=== PATIENT | female | born 1970 | race Caucasian/White ===

== ENCOUNTER 2017-08-29 05:23 | Emergency (ER) | payer OTHER ==
[~2017-08-29] VITALS: Ht 172.7 cm; Wt 54.4 kg
[~2017-08-29 05:23] MED LIST: ALBUTEROL INHAL17 GM INH; ASMANEX0.135 G1; BIAXIN 500 MG500 M1 PO; CHERATUSSIN DA480 ML PO; ETODOLAC 400 M400 M1; FLEXERIL; MIRAPEX PO; NOHOMEMEDICATIONS; VICODIN 5-5001 EACH PO
[2017-08-29] MEDS ORDERED: FLEXERIL PO (05:35)
[2017-08-29 06:05] LABS: URINE BILIRUBIN NEGATIVE (Negative); URINE BLOOD NEGATIVE (Negative); URINE CLARITY CLEAR; URINE COLOR YELLOW; URINE GLUCOSE-RANDOM NEGATIVE (Negative); URINE KETONES NEGATIVE (Negative); URINE LEUKOCYTES-REFLEX NEGATIVE (Negative); URINE NITRITE-REFLEX NEGATIVE (Negative); URINE PROTEIN NEGATIVE (Negative); URINE UROBILINOGEN 0.2 E.U./dl (0.2-1.0)
[2017-08-29 06:12] LABS: AMP/METHAMP Negative (Negative); BARBITURATES Negative (Negative); BENZODIAZEPINES Negative (Negative); COCAINE Negative (Negative); METHADONE Negative (Negative); OPIATES Negative (Negative); PCP Negative (Negative); THC Negative (Negative)
[2017-08-29 06:41] VITALS: BP 126/80
== END 2017-08-29 06:42 | disposition home or self-care (01) ==
LOC: M.ERS 05:23
PROVIDERS: Personal Emergency Response Attendant
DX: K59.00 Constipation, unspecified (principal); R20.2 Paresthesia of skin; Z90.49 Acquired absence of other specified parts of digestive tract; Z88.8 Allergy status to other drugs, medicaments and biological substances

== ENCOUNTER 2018-08-27 13:22 | Emergency (ER) | payer OTHER ==
[~2018-08-27] VITALS: Ht 172.7 cm; Wt 49.0 kg
[~2018-08-27 13:22] MED LIST changes: +FLEXERIL PO
[2018-08-27] MEDS ORDERED: NAPROSYN500 MG PO (13:40)
[2018-08-27] MEDS ORDERED: OMEPRAZOLE20 MG PO (13:40)
[2018-08-27] MEDS ORDERED: LINZESS290 MCG PO (13:41)
[2018-08-27] MEDS ORDERED: FLEXERIL PO (13:41)
[2018-08-27] MEDS ORDERED: NORCO 5-325 TA1 EACH PO (13:42)
[2018-08-27 13:55] LABS: ABSOLUTE EOSINOPHILS 0.1 thou/uL (0.0-0.7); ABSOLUTE MONOCYTES 0.4 thou/uL (0.0-1.2); ABSOLUTE NEUTROPHILS 2.2 thou/uL (1.6-8.1); BASOPHILS 0.9 %; HEMATOCRIT 35.5 % (37.0-47.0); HEMOGLOBIN 12.4 gm/dL (12.0-15.0); LYMPHOCYTES 42.4 %; MCH 30.8 pg (26.0-34.0); MCHC 34.9 g/dL (28.0-37.0); MCV 88.3 fL (80.0-100.0); MPV 7.9 fl. (7.2-11.1); NUCLEATED RBCS 0 /100WBC; PLATELET COUNT* 204 thou/uL (150-400); POLYS 46.7 %; RBC 4.02 mil/uL (4.20-5.00); RDW-CV 13.3 % (10.5-14.5); WBC 4.8 thou/uL (4.0-11.0)
[2018-08-27 14:04] LABS: INR 1.1; PROTIME 10.9 Seconds (9.20-11.50)
[2018-08-27 14:14] LABS: ANION GAP 7 mmol/L (7-16); BUN 13 mg/dL (7-18); CALCIUM 8.6 mg/dL (8.5-10.1); CHLORIDE 104 mmol/L (98-107); CO2 30 mmol/L (21-32); CREATININE 0.9 mg/dL (0.6-1.3); GLUCOSE 94 mg/dL (70-99); POTASSIUM 3.1 mmol/L (3.5-5.1); SODIUM 141 mmol/L (136-145)
[2018-08-27 14:25] LABS: ALKALINE PHOSPHATASE 63 U/L (46-116); SGOT 30 U/L (15-37); SGPT 29 U/L (30-65); TOTAL BILIRUBIN 0.4 mg/dL (<0.1-1.0); TOTAL PROTEIN 6.7 g/dL (6.4-8.2); TROPONIN-I LEVEL <0.06 ng/mL (<0.06)
[2018-08-27 15:21] VITALS: BP 91/58
--- NOTE | 2018-08-28 13:04 | EKG ---
[place] [address] ELECTROCARDIOGRAM REPORT Name: JOSE TYSON [id number] Admission: 08/27/18 Attend Phys: Discharge: 08/27/18 Date of : 74 Report #: [id number] THIS REPORT FOR: //name// [facility] ED Test Date: 2018-08-27 Test Time: 13:47:26 Pat Name: JOSE TYSON Department: Room: Gender: F Asl Interpreter: LAVINIA : 1970 Requested By: Bam Felder Order Number: [id number] MD: Mike Reed Measurements Intervals [place] Rate: 57 P: 65 AK: 190 QRS: 99 QRSD: 100 T: 62 QT: 431 QTc: 420 Interpretive Statements Sinus rhythm Atrial premature complex Borderline right axis deviation Borderline low voltage, extremity leads Baseline wander in lead(s) V2 No previous ECG available for comparison Electronically Signed On 08-28-2018 13:04:47 [employer] by Mike Reed [email or web address] <ELECTRONICALLY SIGNED> By: Mike Reed MD, [facility] 08/28/18 1304 46 Mike Reed MD, FACC /EPI
== END 2018-08-27 15:21 | disposition home or self-care (01) ==
LOC: M.ERS 13:22
PROVIDERS: Family Medicine
DX: R20.2 Paresthesia of skin (principal); M79.7 Fibromyalgia; Z88.8 Allergy status to other drugs, medicaments and biological substances; Z90.49 Acquired absence of other specified parts of digestive tract

== ENCOUNTER 2019-05-11 07:41 | Emergency (ER) | payer OTHER ==
[~2019-05-11] VITALS: Ht 172.7 cm; Wt 46.3 kg
[~2019-05-11 07:41] MED LIST changes: +LINZESS290 MCG PO; +NAPROSYN500 MG PO; +NORCO 5-325 TA1 EACH PO; +OMEPRAZOLE20 MG PO
[2019-05-11] MEDS ORDERED: KEFLEX500 M2 PO (08:25)
[2019-05-11 09:04] LABS: HEMATOCRIT 38.9 % (37.0-47.0); HEMOGLOBIN 13.3 gm/dL (12.0-15.0); MCH 29.9 pg (26.0-34.0); MCHC 34.2 g/dL (28.0-37.0); MCV 87.4 fL (80.0-100.0); MPV 7.6 fl. (7.2-11.1); RBC 4.45 mil/uL (4.20-5.00); RDW-CV 12.9 % (10.5-14.5); WBC 8.5 thou/uL (4.0-11.0)
[2019-05-11 09:09] LABS: CALCIUM 9.3 mg/dL (8.5-10.1); CREATININE 0.9 mg/dL (0.6-1.3)
[2019-05-11] MEDS ORDERED: ANTIVERT25 MG PO (09:48)
[2019-05-11] MEDS ORDERED: CEFDINIR300 MG PO (09:48)
[2019-05-11] MEDS ORDERED: ZOFRAN ODT4 MG DISSOLVE (09:48)
[2019-05-11] MEDS ORDERED: POTASSIUM20 PO (10:07)
[2019-05-11 10:23] VITALS: BP 105/65
== END 2019-05-11 10:28 | disposition home or self-care (01) ==
LOC: M.ERS 07:41
PROVIDERS: Emergency Medicine Emergency Medical Services
DX: H81.399 Other peripheral vertigo, unspecified ear (principal); K58.9 Irritable bowel syndrome, unspecified; M19.90 Unspecified osteoarthritis, unspecified site; M48.00 Spinal stenosis, site unspecified; M79.7 Fibromyalgia; Z90.49 Acquired absence of other specified parts of digestive tract; Z98.51 Tubal ligation status; Z88.8 Allergy status to other drugs, medicaments and biological substances

== ENCOUNTER → 2020-02-24 | Outpatient (CLI) | payer OTHER ==
[~2020-02-24] MED LIST changes: +ANTIVERT25 MG PO; +CEFDINIR300 MG PO; +KEFLEX500 M2 PO; +POTASSIUM20 PO; +ZOFRAN ODT4 MG DISSOLVE
== END ==
LOC: M.CT 07:32
PROVIDERS: ATTEND Family Medicine
DX: J84.10 Pulmonary fibrosis, unspecified (principal); R05 Cough